=== PATIENT | female | born 1990 | race Caucasian/White ===

== ENCOUNTER 2016-04-04 00:09 | Emergency (ER) | payer OTHER ==
[2016-04-04] MEDS ORDERED: Morphine INJ* 4 MG/ML 1 ML CARPUJECT IV ONE (00:15)
[2016-04-04] MEDS ORDERED: NS 0.9% 1000 ML* 1,000 ML IV ONE ×2 (00:15→02:30)
[2016-04-04] MEDS ORDERED: Ondansetron INJ* 2 MG/ML VIAL IV ONE (00:15)
[2016-04-04 01:21] LABS: Hematocrit 40 % (35-47); Hemoglobin 13.4 g/dl (12.0-16.0); Mean Corpuscular HGB Conc 34 g/dl (31-36); Mean Corpuscular Hemoglobin 32 pg (27-31); Mean Corpuscular Volume 93 fL (80-97); Mean Platelet Volume 9 um3 (7.4-10.4); Red Blood Count 4.26 10^6/ul (4.0-5.4); Red Cell Distribution Width 13 % (10.5-15); White Blood Count 10.1 10^3/ul (3.5-10.8)
[2016-04-04 01:33] LABS: ALT 15 U/L (7-52); AST 14 U/L (13-39); Albumin 3.7 g/dL (3.2-5.2); Alkaline Phosphatase 39 U/L (34-104); Anion Gap 6 mmol/L (2-11); Blood Urea Nitrogen 8 mg/dL (6-24); C Reactive Protein < 1.00 mg/L (< 5.00); CO2 Carbon Dioxide 22 mmol/L (22-32); Chloride 110 mmol/L (101-111); EGFR African American 164.9 (>60); EGFR Non-African American 128.2 (>60); Globulin 2.3 g/dL (2-4); Glucose 100 mg/dL (70-100); Lipase 13 U/L (11.0-82.0); Magnesium 1.5 mg/dL (1.9-2.7); Sodium 138 mmol/L (133-145)
[2016-04-04] MEDS ORDERED: Potassium Chlor TAB* 20 MEQ TAB.ER PO ONE (01:51)
[2016-04-04] MEDS ORDERED: LORazepam INJ* 2 MG/ML 1 ML VIAL IV PUSH ONE (01:54)
[2016-04-04 02:08] LABS: Urine Bilirubin Negative (Negative); Urine Glucose Negative (Negative); Urine Nitrite Negative (Negative)
[2016-04-04] MEDS ORDERED: Iohexol 300* (CONTRAST) 10 ML SDV IV ONE (02:42)
[2016-04-04] MEDS ORDERED: Ondansetron ODT TAB* 4 MG PO ONE (03:53)
[2016-04-04] MEDS ORDERED: Magnesium Oxide TAB* 400 MG PO ONE (03:54)
--- NOTE | 2016-04-04 03:56 | ED ---
Pal Cowart Anna, scribed for Kavitha Sun MD on 04/04/16 at 0016 . Abdominal Pain/Female - HPI Summary HPI Summary: Patient is a 25 y/o female BIBA to [facility] presenting with sudden onset of intermittent right-sided, lower abdominal pain that began at [address] home from work. She describes the severity of the pain as 6/10. She became nauseous and experienced emesis. She took Zofran, felt better for 20 minutes, ate dinner, and was playing with her daughter when the symptoms relapsed. She reports CP and anxiety. Has felt the BM urge but has not had a BM today or yesterday. Denies blood in vomit. Hx significant for anxiety, depression, renal calculi. G/P/A is . She reports experiencing recent job stress and has inadvertently lost 12 lbs in the last four months. She has an IUD and has not had periods with this. - History of Current Complaint Chief Complaint: EDAbdPain Stated Complaint: ABD PAIN Hx Obtained From: Patient Pain Intensity: 6 Pain Scale Used: 0-10 Numeric Allergies/Adverse Reactions: Allergies Allergy/AdvReac Type Severity Reaction Status Date / Time No Known Allergies Allergy Verified 08/11/15 08:40 PMH/Surg Hx/FS Hx/Imm Hx Previously Healthy: Yes Psychiatric History: Reports: Hx Anxiety, Hx Depression - Surgical History Surgery Procedure, Year, and Place: TONSILLECTOMY/ADENOIDECTOMY. 3 LEFT shoulder surgeries Infectious Disease History: No Infectious Disease History: Denies: Traveled Outside the [place] in Last 30 Days - Family History Known Family History: Positive: None Negative: Cardiac Disease, Hypertension - Social History Occupation: Employed Full-time Lives: With Family Alcohol Use: Rare Substance Use Type: Reports: None Smoking Status (MU): Never Smoked Tobacco Have You Smoked in the Last Year: No Review of Systems Constitutional: Negative Eyes: Negative ENT: Negative Positive: Chest Pain Respiratory: Negative Positive: Abdominal Pain, Vomiting, Nausea Positive: frequency - reduced BM frequency Musculoskeletal: Negative Skin: Negative Neurological: Negative Positive: Anxious All Other Systems Reviewed And Are Negative: Yes Physical Exam Triage Information Reviewed: Yes Vital Signs On Initial Exam: Initial Vitals Temp Pulse Resp BP Pulse Ox 99.0 F 95 16 102/67 98 04/04/16 00:13 04/04/16 00:13 04/04/16 00:13 04/04/16 00:13 04/04/16 00:13 Vital Signs Reviewed: Yes Appearance: Positive: Well-Appearing, No Pain Distress Skin: Positive: Warm, Skin Color Reflects Adequate Perfusion, Dry Eyes: Positive: EOMI, CHUCKIE ENT: Positive: Pharynx normal, TMs normal Neck: Positive: Supple, Nontender Respiratory/Lung Sounds: Positive: Clear to Auscultation, Breath Sounds Present. Negative: Rales, Rhonchi, Wheezes Cardiovascular: Positive: RRR, Other - no gallops. Negative: Murmur, Rub Abdomen Description: Positive: Soft, Other: - Positive Rovsings sign, RLQ tenderness. Negative: Distended, Guarding Bowel Sounds: Positive: Present Musculoskeletal: Positive: Strength/ROM Intact. Negative: Edema Left, Edema Right Neurological: Positive: Sensory/Motor Intact, Alert, Oriented to Person Place, Time, CN Intact II-III - II-XII Psychiatric: Positive: Affect/Mood Appropriate Diagnostics - Vital Signs Vital Signs Temp Pulse Resp BP Pulse Ox 04/04/16 00:13 99.0 F 95 16 102/67 98 - Laboratory Lab Results: Lab Results 04/04/16 04/04/16 04/04/16 Range/Units 00:35 00:35 01:50 WBC 10.1 (3.5-10.8) 10^3/ul RBC 4.26 (4.0-5.4) 10^6/ul Hgb 13.4 (12.0-16.0) g/dl Hct 40 (35-47) % MCV 93 (80-97) fL MCH 32 H (27-31) pg MCHC 34 (31-36) g/dl RDW 13 (10.5-15) % Plt Count 186 (150-450) 10^3/ul MPV 9 (7.4-10.4) um3 Neut % (Auto) 84.5 H (38-83) % Lymph % (Auto) 7.8 L (25-47) % [place] % (Auto) 6.9 (1-9) % Eos % (Auto) 0.7 (0-6) % Baso % (Auto) 0.1 (0-2) % Absolute Neuts (auto) 8.5 H (1.5-7.7) 10^3/ul Absolute Lymphs (auto) 0.8 L (1.0-4.8) 10^3/ul Absolute Monos (auto) 0.7 (0-0.8) 10^3/ul Absolute Eos (auto) 0.1 (0-0.6) 10^3/ul Absolute Basos (auto) 0 (0-0.2) 10^3/ul Absolute Nucleated RBC 0 10^3/ul Nucleated RBC % 0 Sodium 138 (133-145) mmol/L Potassium 3.0 L (3.5-5.0) mmol/L Chloride 110 (101-111) mmol/L Carbon Dioxide 22 (22-32) mmol/L Anion Gap 6 (2-11) mmol/L BUN 8 (6-24) mg/dL Creatinine 0.57 (0.51-0.95) mg/dL Est GFR ( Amer) 164.9 (>60) Est GFR (Non-Af Amer) 128.2 (>60) BUN/Creatinine Ratio 14.0 (8-20) Glucose 100 (70-100) mg/dL Calcium 8.0 L (8.6-10.3) mg/dL Magnesium 1.5 L (1.9-2.7) mg/dL Total Bilirubin 0.70 (0.2-1.0) mg/dL AST 14 (13-39) U/L ALT 15 (7-52) U/L Alkaline Phosphatase 39 (34-104) U/L C-Reactive Protein < 1.00 (< 5.00) mg/L Total Protein 6.0 L (6.4-8.9) g/dL Albumin 3.7 (3.2-5.2) g/dL Globulin 2.3 (2-4) g/dL Albumin/Globulin Ratio 1.6 (1-3) Lipase 13 (11.0-82.0) U/L Beta HCG, Quant < 0.60 mIU/mL Urine Color Yellow Urine Appearance Clear Urine pH 6.0 (5-9) Ur Specific [place] 1.016 (1.010-1.030) Urine Protein Negative (Negative) Urine Ketones 2+ H (Negative) Urine Blood Negative (Negative) Urine Nitrate Negative (Negative) Urine Bilirubin Negative (Negative) Urine Urobilinogen Negative (Negative) Ur Leukocyte Esterase Negative (Negative) Urine Glucose Negative (Negative) Result Diagrams: 04/04/16 00:35 04/04/16 00:35 Lab Statement: Any lab studies that have been ordered have been reviewed, and results considered in the medical decision making process. - CT CT Abd/Pel CT Interpretation: No Acute Changes CT Interpretation Completed By: Radiologist - Impression: The appendix is not identified. No cecal thickening or pericecal inflammatory changes are seen. No other inflammatory process identified in the abd or pelvis. No abd mass, adenopathy or collection seen. Abdominal Pain Fem Course/Dx - Course Course Of Treatment: 25 yo with emesis and then sudden onset of rlq pain, CT didn't show appendix but there was not any signs of inflammation in the region. mag and potassium repleted pt feeling better. she notes that she gets panic attacks with vomiting and she ended up requiring ativan here - Diagnoses Provider Diagnoses: Abdominal pain, Emesis Discharge - Discharge Plan Condition: Stable Disposition: HOME The documentation as recorded by the Pal ordoñez Anna accurately reflects the service I personally performed and the decisions made by me, Kavitha Sun MD.
[2016-04-04] MEDS ORDERED: LORazepam TAB(*) 1 MG PO ONE (04:27)
[2016-04-04] MEDS ORDERED: NS 0.9% 1000 ML* 2,000 ML IV ONE (05:24)
[2016-04-04] MEDS ORDERED: Magnesium Sulfate 2 GM IV* 2 GM/50 ML BAG IVPB ONE (05:24)
--- NOTE | 2016-04-04 06:08 | ED ---
IPal Anna, scribed for Kavitha Sun MD on 04/04/16 at 0525 . Progress - Progress Note Progress Note: Patient felt severe nausea when she stood up to leave. She was returned to her room and will receive fluids. Pt will be signed out to am attending as receiving fluids and ready to go once fluids are in Course/Dx - Course Course Of Treatment: 25 yo with emesis and then sudden onset of rlq pain, CT didn't show appendix but there was not any signs of inflammation in the region. mag and potassium repleted pt feeling better. she notes that she gets panic attacks with vomiting and she ended up requiring ativan here - Diagnoses Provider Diagnoses: Abdominal pain, Emesis The documentation as recorded by the Pal ordoñez Anna accurately reflects the service I personally performed and the decisions made by me, Kavitha Sun MD.
[2016-04-04] MEDS ORDERED: diPHENhydraMINE IV* 25 MG in NS 0.9% 50 ML* 50 ML IVPB ONE (07:54)
[2016-04-04] MEDS ORDERED: Potassium Chloride LIQUID* 20 MEQ PACKET PO ONE (07:54)
[2016-04-04] MEDS ORDERED: Metoclopramide IV* 5 MG/ML 2 ML VIAL IV SLOW PU ONE (07:54)
--- NOTE | 2016-04-04 08:03 | ED ---
Progress - Progress Note Progress Note: Received in signout from Dr. 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 She reports last evening she developed acute right side lower abdominal pain immediately followed by a couple of episodes of vomiting, anorexia during the day. Reports her 2 year daughter was vomiting two days ago. On re-eval @ 0730 she reports persistent nausea, 3/10 pain, and is still exquisitely tender in the RLQ. [place] read of CT neg, awaiting local radiology group reading, repleting KCL which she vomited up, continue antiemesis, pelvic sonogram ordered as preliminarily her CT is negative. Given constellation of symptoms, depending upon US read and continuing symptoms, may ask surgery to consult on the patient as the appendix wasn't definitively identified. Re-eval @ 1030 abdomen nontender, feeling better, goal for PO challenge. Course/Dx - Course Course Of Treatment: 25 yo with emesis and then sudden onset of rlq pain, CT didn't show appendix but there was not any signs of inflammation in the region. mag and potassium repleted pt feeling better. she notes that she gets panic attacks with vomiting and she ended up requiring ativan here - Diagnoses Provider Diagnoses: Abdominal pain, Emesis, Hypokalemia
--- NOTE | 2016-04-04 08:07 | RAD ---
INDICATION: Right lower quadrant abdominal pain. COMPARISON: Comparison is made with a prior CT of the abdomen and pelvis from March 18, 2007. TECHNIQUE: A CT scan of the abdomen and pelvis was performed with intravenous and oral contrast following intravenous injection of 73 ml of Omnipaque 300 nonionic contrast. Contiguous axial sections were obtained from the lung bases through the symphysis pubis. Images were reconstructed in the coronal and sagittal planes. FINDINGS: There is mild dependent bilateral lower lobe subsegmental atelectasis. No pleural effusion is present. The liver and spleen are within normal limits in size without significant focal abnormality. No calcified gallstones are seen. The pancreas appears to be within normal limits in size. The kidneys and adrenal glands are normal in size. No hydronephrosis is seen. No significant focal renal abnormality is seen. The aorta is normal in caliber and demonstrates homogeneous contrast opacification. No significant enlarged retroperitoneal lymph nodes are seen. The stomach, small and large bowel appear nondistended. There is limited contrast opacification of the bowel. There is a small amount of contrast within the stomach and mid to distal small bowel. The appendix is not visualized limiting the study. No pericecal inflammatory changes or cecal wall thickening are seen. There is a moderate amount of retained stool. There is no evidence for diverticulitis or colitis. The uterus is anteverted and normal in size. There is an IUD present which appears to be in normal position. There is a 2.7 x 2.1 cm cyst present in the left ovary. There is a trace amount of free intraperitoneal fluid in the cul-de-sac. No free intraperitoneal air is seen. No significant focal osseous abnormality is seen. IMPRESSION: 1. LIMITED STUDY, THE APPENDIX IS NOT VISUALIZED ALTHOUGH NO INFLAMMATORY CHANGES ARE SEEN IN THE RIGHT LOWER QUADRANT. IF THE PATIENT'S SYMPTOMS PERSIST RECOMMEND REPEAT IMAGING. 2. 2.7 CM LEFT OVARIAN CYST.
[2016-04-04] MEDS ORDERED: diPHENhydraMINE IV* 50 MG/ML 1 ml VIAL (BENADRYL) SLOW PUSH ONE (08:19)
[2016-04-04] MEDS ORDERED: Potassium Chloride LIQUID* 20 MEQ PACKET ONE (08:30)
--- NOTE | 2016-04-04 09:33 | RAD ---
INDICATION: Pelvic pain COMPARISON: CT April 04, 2016 TECHNIQUE: Longitudinal and transverse transvaginal scans of the pelvis were obtained. FINDINGS: Uterus: The uterus is normal in size. There are no focal masses. The uterus measures 7.6 x 3.9 x 6.1 cm. Endometrial thickness: The endometrial thickness is measured at 0.3 cm. There is an IUD in expected position. Free fluid: There is no significant free fluid . Ovaries: The ovaries are normal in size. The right ovary measures 2.1 x 1.7 x 2.0 cm. The left ovary measures 3.6 x 2.2 x 3.5 cm. There is a 3.0 x 1.5 x 2.7 cm left ovarian cyst. Doppler interrogation demonstrates flow to each ovary. Other: None IMPRESSION: IUD IN EXPECTED POSITION. 3 CM LEFT OVARIAN CYST. NO FINDINGS OF TORSION.
[2016-04-04 11:05] VITALS: BP 107/59
== END 2016-04-04 11:21 | disposition home or self-care (01) ==
LOC: ED 00:09
DX: R10.31 Right lower quadrant pain (principal); R11.10 Vomiting, unspecified; E87.6 Hypokalemia; F41.9 Anxiety disorder, unspecified; F32.9 Major depressive disorder, single episode, unspecified; Z87.442 Personal history of urinary calculi
CPT/HCPCS: 36415; 74177; 76830; 80053; 81003; 83690; 83735; 84702; 85025; 86140; 96360; 96361; 96374; 96375; 99282; A9270-GY; J1200; J2060; J2270; J2405; J2765; J3475; Q9967

== ENCOUNTER 2016-08-04 09:33 | Day surgery (SDC) | payer OTHER ==
--- NOTE | 2016-08-02 21:11 | HP ---
HISTORY AND PHYSICAL: DATE OF SURGERY/ADMISSION: 08/04/16 [facility] ATTENDING PHYSICIAN/SURGEON: Zina Salinas MD. (DICTATED BY MIREYA HART) PROCEDURE: Left wrist de Quervain's release. CHIEF COMPLAINT: Left wrist pain. HISTORY OF PRESENT ILLNESS: Edda is a 25-year-old female with a complaint of left wrist pain. The pain started about 3 years ago. She has tried physical therapy and a number of cortisone injections to try and relieve the pain. These have helped somewhat. She has elected to go ahead with left wrist de Quervain's release. Denies numbness or tingling. Denies fevers or chills. PAST MEDICAL HISTORY: 1. Depression. 2. Anxiety. PAST SURGICAL HISTORY: 1. Tonsillectomy and adenoidectomy. 2. Three surgeries of the left shoulder in 2008, 2009, and 2010. MEDICATIONS: Xanax. ALLERGIES: No known drug allergies. FAMILY HISTORY: Cancer and heart disease. SOCIAL HISTORY: She works as a logistics lead. She admits to smoking occasionally, and drinks wine or beer 3 times a week. REVIEW OF SYSTEMS: A 14-point review of systems was reviewed with the patient. Other than kidney stones 3 years ago, all systems are negative and noncontributory. PHYSICAL EXAMINATION GENERAL: Well-developed, well-nourished 25-year-old female in no acute distress. VITAL SIGNS: Height 63 inches, weight 125 pounds. Pulse 76, blood pressure is 102/78, respirations 14, temperature is 97.3. HEENT: Normocephalic and atraumatic. NECK: Supple. No palpable lymph nodes. Throat is clear. PULMONARY: Lungs clear to auscultation bilaterally. No wheezes or rhonchi. CARDIO: Regular rate and rhythm. S1, S2. No murmurs, rubs, or gallops. No edema. ABDOMEN: Soft, nontender. Positive bowel sounds throughout. NEUROLOGICAL: Alert and oriented x3. Cranial nerves II through XII intact. Sensation intact to light touch. MUSCULOSKELETAL: Full range of motion. Tenderness at the first dorsal compartment. Positive Chery's test. IMPRESSION: Left wrist de Quervain's tenosynovitis. PLAN: The patient is scheduled to undergo a left wrist de Quervain's release on 08/04/16. She will return to the office 10 to 14 days postop for followup and suture removal. The patient declines narcotics for postop pain. She will take ibuprofen for postoperative pain management. MIREYA HART [id number]/[facility] #: [id number] DAVID
[~2016-08-04 09:33] MED LIST: Buffered Lidocaine 1% SYR 3ML* 3 ML/SYR SYRINGE INTRADERM ONE; Lidocaine 1% INJ* 10 MG/ML 30 ML SDV ONE
[2016-08-04] MEDS ORDERED: Midazolam* 1 MG/ML 5 ML VIAL (5 MG) ONE (09:37)
[2016-08-04] MEDS ORDERED: fentaNYL* 50 MCG/ML 2 ML VIAL (100 MCG VIAL) ONE (09:37)
[2016-08-04] MEDS ORDERED: Buffered Lidocaine 1% SYRIN* 5 ML/SYR SYRINGE ONE (09:45)
[2016-08-04] MEDS ORDERED: Ondansetron INJ* 2 MG/ML VIAL IV PRN (10:43)
[2016-08-04 12:21] VITALS: BP 99/57
--- NOTE | 2016-08-05 00:34 | OP ---
DATE OF OPERATION: 08/04/[address] [facility] DATE OF : 88 SURGEON: Dr. Salinas. CARE DIRECTOR RN: MIREYA Manley ANESTHESIOLOGIST: Shanti Armstrong MD ANESTHESIA: Local MAC. PRE-OP DIAGNOSIS: Left de Quervain's tenosynovitis. POST-OP DIAGNOSIS: Left de Quervain's tenosynovitis. OPERATIVE PROCEDURE: Left de Quervain's release. ESTIMATED BLOOD LOSS: Zero. TOURNIQUET TIME: About 10 minutes. INDICATIONS FOR PROCEDURE: Edda is a 25-year-old female with pain in her left wrist at the radial styloid. She has been diagnosed with de Quervain's tenosynovitis, has now failed conservative treatment with cortisone injections and presents for left de Quervain's release. DESCRIPTION OF PROCEDURE: The patient was brought to the operating room, was given a sedation anesthetic and a local infiltration of 10 cc of 1% plain lidocaine in the palm of her left hand. The skin of her left hand and forearm was prepped and draped in the usual sterile fashion. The hand and forearm were exsanguinated and the tourniquet elevated to 250 mmHg. A longitudinal incision was made, centered at the radial styloid. We dissected bluntly through the subcutaneous tissue down to the first dorsal compartment. Branches of the radial sensory nerve were located and retracted by the pharmacy sales assistant, Andre Buchanan. The first dorsal compartment was incised longitudinally, completely releasing the APL and EPB tendons, which were in separate compartments. The wound was irrigated and the skin edges were reapproximated with 4-0 nylon suture. The wound was dressed with Xeroform, 4x4, Webril, and an Floyd wrap. The patient tolerated the procedure well and was brought to the recovery room in good condition. [id number]/[facility] #: [id number] [facility] HOSPITALBrenna
== END 2016-08-04 12:00 | disposition home or self-care (01) ==
LOC: OREAST 09:33
PROVIDERS: ATTEND Orthopaedic Surgery
DX: M65.4 Radial styloid tenosynovitis [de Quervain] (principal); F41.8 Other specified anxiety disorders
CPT/HCPCS: J2001; J2250; J3010

== ENCOUNTER 2016-10-18 12:23 | Emergency (ER) | payer OTHER ==
[2016-10-18] MEDS ORDERED: NS 0.9% 1000 ML* 2,000 ML IV ONE (12:52)
[2016-10-18] MEDS ORDERED: Ondansetron INJ* 2 MG/ML VIAL IV ONE (12:52)
[2016-10-18 14:24] LABS: Hematocrit 40 % (35-47); Hemoglobin 13.2 g/dl (12.0-16.0); Mean Corpuscular HGB Conc 33 g/dl (31-36); Mean Corpuscular Hemoglobin 32 pg (27-31); Mean Corpuscular Volume 95 fL (80-97); Mean Platelet Volume 9 um3 (7.4-10.4); Red Blood Count 4.15 10^6/ul (4.0-5.4); Red Cell Distribution Width 13 % (10.5-15)
[2016-10-18 14:41] LABS: Albumin 4.2 g/dL (3.2-5.2); BUN/Creatinine Ratio 10.2 (8-20); Calcium 8.9 mg/dL (8.6-10.3); EGFR African American 157.2 (>60); EGFR Non-African American 122.3 (>60); Globulin 2.7 g/dL (2-4); Potassium 3.8 mmol/L (3.5-5.0); Total Bilirubin 0.4 mg/dL (0.2-1.0); Total Protein 6.9 g/dL (6.4-8.9)
[2016-10-18] MEDS ORDERED: Ketorolac INJ* 30 MG/ML 1 ML VIAL IV PUSH ONE (15:18)
[2016-10-18 17:49] VITALS: BP 121/53
--- NOTE | 2016-10-21 14:28 | ED ---
Natan Cowart Rebecca, scribed for Lobito Chau MD on 10/18/16 at 1338 . Complex/Multi-Sys Presentation - HPI Summary HPI Summary: Pt is a 26 y/o F who presents to ED c/o diarrhea. Sx began for 4 days, 25 minutes after eating [employer], and is characterized as watery and loose. Sx aggravated by PO intake, alleviated by nothing. Additionally c/o suprapubic abd pain, myalgias, MCNEILL and lightheadedness. Myalgias began yesterday afternoon. Notes fatigue, stating "I feel like I haven't slept." Denies fever, vomiting, vaginal discharge, dysuria, hematuria, blood in stool, rash. No recent Abx. No recent sick contact. Has not noticed any ticks, though she lives [facility]. Had raw sushi 5 days ago and pulled pork from a barbeque 4 days ago. Last swam in [facility] 2 weeks ago. Has not drank any untreated water recently. - History Of Current Complaint Chief Complaint: EDAbdPain Time Seen by Provider: 10/18/16 12:45 Hx Obtained From: Patient Onset/Duration: Lasting Days - 4 days, Still Present Location: Pain At: - Suprapubic abdominal pain Aggravating Factor(s): PO intake Alleviating Factor(s): Nothing Associated Signs And Symptoms: Positive: Headache, Abdominal Pain. Negative: Vomiting, Fever - Allergies/Home Medications Allergies/Adverse Reactions: Allergies Allergy/AdvReac Type Severity Reaction Status Date / Time No Known Allergies Allergy Verified 08/04/16 09:49 PMH/Surg Hx/FS Hx/Imm Hx Endocrine/Hematology History: Denies: Hx Diabetes Cardiovascular History: Denies: Hx Hypertension History: Reports: Hx Kidney Stones - last time 3-4 years ago Denies: Hx Renal Disease Musculoskeletal History: Reports: Hx Tendonitis - left Sensory History: Reports: Hx Contacts or Glasses - both - will wear glasses Denies: Hx Hearing Aid Opthamlomology History: Reports: Hx Contacts or Glasses - both - will wear glasses Psychiatric History: Reports: Hx Anxiety, Hx Depression - Surgical History Surgery Procedure, Year, and Place: TONSILLECTOMY/ADENOIDECTOMY. 3 LEFT shoulder surgeries Hx Anesthesia Reactions: Yes - doesn't tolerate general very well, extreme nausea and vomiting Infectious Disease History: Denies: Traveled Outside the [place] in Last 30 Days - Family History Known Family History: Negative: Cardiac Disease, Hypertension - Social History Alcohol Use: Occasionally Substance Use Type: Reports: None Smoking Status (MU): Current Some Day Smoker Amount Used/How Often: occassionally when goes out for a few drinks, not daily Have You Smoked in the Last Year: No Review of Systems Positive: Fatigue. Negative: Fever, Chills Negative: Erythema Negative: Sore Throat Negative: Chest Pain Negative: Shortness Of Breath, Cough Positive: Abdominal Pain - Suprapubic, Diarrhea. Negative: Vomiting, Nausea Positive: other - Denies blood in stool. Negative: dysuria, discharge, hematuria Positive: Myalgia. Negative: Edema Negative: Rash Neurological: Other - Lightheadedness Positive: Headache All Other Systems Reviewed And Are Negative: Yes Physical Exam - Summary Physical Exam Summary: Constitutional: Well-developed, Well-nourished, Alert. (-) Distressed Skin: Warm, Dry, No rash HENT: Normocephalic; Atraumatic Eyes: Conjunctiva normal Neck: Musculoskeletal ROM normal neck. (-) JVD, (-) Stridor, (-) Tracheal deviation Cardio: Rhythm regular, rate normal, Heart sounds normal; Intact distal pulses; The pedal pulses are 2+ and symmetric. Radial pulses are 2+ and symmetric. (-) Murmur Pulmonary/Chest wall: Effort normal. (-) Respiratory distress, (-) Wheezes, (-) Rales Abd: Soft, Very mild LLQ tenderness, (-) Distension, (-) Guarding, (-) Rebound Musculoskeletal: (-) Edema Lymph: (-) Cervical adenopathy Neuro: Alert, Oriented x3 Psych: Mood and affect Normal Triage Information Reviewed: Yes Vital Signs On Initial Exam: Initial Vitals Temp Pulse Resp BP Pulse Ox 98.4 F 78 16 113/68 98 10/18/16 12:34 10/18/16 12:34 10/18/16 12:34 10/18/16 12:34 10/18/16 12:34 Vital Signs Reviewed: Yes Diagnostics - Vital Signs Vital Signs Temp Pulse Resp BP Pulse Ox 10/18/16 12:34 98.4 F 78 16 113/68 98 - Laboratory Result Diagrams: 10/18/16 14:12 10/18/16 14:12 Lab Statement: Any lab studies that have been ordered have been reviewed, and results considered in the medical decision making process. Re-Evaluation - Re-Evaluation First Eval Re-Evaluation Time: 15:18 Change: Unchanged Comment: Still has a MCNEILL, requested some Toradol. Her first Ns bag is complete. Second Eval Re-Evaluation Time: 16:04 Change: Unchanged Comment: Her fluids are still running. She was unable to produce a sample, so we will give her a hat and specimen cup. Will give her an Rx for outpatient studies. She understands and agrees. Complex Multi-Symp Course/Dx Assessment/Plan: Pt is a 26 y/o F who presents to ED c/o diarrhea for 4 days, 25 minutes after eating [employer], characterized as watery and loose. Sx aggravated by PO intake. Additionally c/o suprapubic abd pain, myalgias, MCNEILL, lightheadedness and fatigue. Denies fever, vomiting, vaginal discharge, dysuria , hematuria, blood in stool, rash. No recent Abx. No recent sick contact. Has not noticed any ticks, though she lives [facility]. Had raw sushi 5 days ago. Last swam in [facility] 2 weeks ago. Has not drank any untreated water recently. In the ED course, pt recieved Toradol, Zofran and Ns. Lab results WNL except MCH of 32. She was unable to produce a stool smaple, so she will recieved an Rx for outpatient studies. She will be D/C to home with Dx of diarrhea and dehydration with a follow up with her PCP in 2-3 days. She understands and agrees. Patient medications reviewed this visit. - Diagnoses Provider Diagnoses: Diarrhea, Dehydration Discharge - Discharge Plan Condition: Stable Disposition: HOME Patient Education Materials: Dehydration (ED), Acute Diarrhea (ED) Forms: *Work Release Referrals: Kris Hernández MD [Primary Care Provider] - (Follow up with Dr. Hernández in 2-3 days. ) Additional Instructions: RETURN TO THE EMERGENCY DEPARTMENT FOR ANY RETURNING OR WORSENING SYMPTOMS. The documentation as recorded by the Natan ordoñez Rebecca accurately reflects the service I personally performed and the decisions made by me, Lobito Chau MD.
== END 2016-10-18 17:25 | disposition home or self-care (01) ==
LOC: ED 12:23
DX: R19.7 Diarrhea, unspecified (principal); E86.0 Dehydration; R42 Dizziness and giddiness; F41.9 Anxiety disorder, unspecified; F32.9 Major depressive disorder, single episode, unspecified; Z87.442 Personal history of urinary calculi; Z72.0 Tobacco use
CPT/HCPCS: 36415; 80053; 85027; 96361; 96374; 96375; 99282; J1885; J2405

== ENCOUNTER 2017-06-11 07:33 | Emergency (ER) | payer OTHER ==
[2017-06-11 07:58] VITALS: BP 111/68
--- NOTE | 2017-06-11 08:17 | UC ---
FLU HPI - HPI Summary HPI Summary: Pt presents with fatigue, body aches, dry cough, and sore throat since yesterday. She tells me that her daughter has been sick with similar symptoms over the last few days. Has not taken anything OTC. She is worried about the flu. Denies sinus symptoms, dizziness, SOB, chest pain, abdominal pain, n/v/d/c. - History of Current Complaint Chief Complaint: UCRespiratory Stated Complaint: HEADACHE CHILLS COUGH CONGESTION Time Seen by Provider: 06/11/17 07:56 Hx Obtained From: Patient Hx Last Menstrual Period: 06/04/17- Has mirena IUD Onset/Duration: Sudden Onset Severity Currently: Severe Severity Initially: Severe Pain Intensity: 8 Pain Scale Used: 0-10 Numeric - Allergy/Home Medications Allergies/Adverse Reactions: Allergies Allergy/AdvReac Type Severity Reaction Status Date / Time No Known Allergies Allergy Verified 06/11/17 07:58 Home Medications: Home Medications Acetaminophen [Tylenol] 500 mg PO DAILY PRN 06/11/17 [History Confirmed 06/11/17 ] PMH/Surg Hx/FS Hx/Imm Hx Previously Healthy: Yes - Surgical History Surgical History: Yes Surgery Procedure, Year, and Place: TONSILLECTOMY/ADENOIDECTOMY. 3 LEFT shoulder surgeries - Family History Known Family History: Positive: None Negative: Cardiac Disease, Hypertension - Social History Occupation: Employed Full-time Lives: With Family Alcohol Use: Occasionally Substance Use Type: None Smoking Status (MU): Current Some Day Smoker Type: Cigarettes Amount Used/How Often: occassionally when goes out for a few drinks, not daily Have You Smoked in the Last Year: No - Immunization History Most Recent Influenza Vaccination: 2014 Most Recent Tetanus Shot: 07/29/13 Most Recent Pneumonia Vaccination: none Review of Systems Constitutional: Fever, Fatigue, Other - Body aches Skin: Negative Eyes: Negative ENT: Sore Throat Respiratory: Cough Cardiovascular: Negative Gastrointestinal: Negative Neurological: Negative Psychological: Negative All Other Systems Reviewed And Are Negative: Yes Physical Exam - Summary Physical Exam Summary: GENERAL: NAD. WDWN. No pain distress. SKIN: No rashes, sores, ulcers, masses, lesions. HEENT: Head: AT/NC Eyes: EOM intact. Conjunctiva clear without inflammation or discharge. Ears: Hearing grossly normal. TMs intact, no bulging, erythema, or edema. Nose: Nasal mucosa pink and moist. NTTP maxillary and frontal sinus. Throat: Posterior oropharynx without exudates, erythema, or tonsillar enlargement. Uvula midline. NECK: Supple. Nontender. No lymphadenopathy. CHEST: CTAB. No r/r/w. No accessory muscle use. Breathing comfortably and in no distress. CV: RRR. Without m/r/g. Pulses intact. Brisk cap refill. NEURO: Alert. CN II-XII grossly intact. PSYCH: Age appropriate behavior. Triage Information Reviewed: Yes Vital Signs: Initial Vital Signs Temp 98.3 F 06/11/17 07:55 Pulse 97 06/11/17 07:55 Resp 14 06/11/17 07:55 BP 111/68 06/11/17 07:55 Pulse Ox 100 06/11/17 07:55 Flu Course/Dx - Course Course Of Treatment: POC flu negative. Suspect viral illness. Advised rest, fluids, and ibuprofen for general discomfort. - Differential Dx/Diagnosis Provider Diagnoses: Viral syndrome Discharge - Sign-Out/Discharge Documenting (check all that apply): Discharge - Discharge Plan Condition: Stable Disposition: HOME Prescriptions: predniSONE TAB* [Deltasone TAB*] 20 mg PO BID #10 tab Patient Education Materials: Viral Syndrome (ED) Referrals: Kris Hernández MD [Primary Care Provider] - Additional Instructions: If you develop a fever, shortness of breath, chest pain, new or worsening symptoms - please call your PCP or go to the ED. - Billing Disposition and Condition Condition: STABLE Disposition: HOME
== END 2017-06-11 08:31 | disposition home or self-care (01) ==
LOC: UCEAST 07:33
DX: B34.9 Viral infection, unspecified (principal); Z72.0 Tobacco use
CPT/HCPCS: 87502; 99212; G0463